=== PATIENT | female | born 1985 | race African-American/Black ===

== ENCOUNTER 2023-09-07 20:36 | Emergency (ER) | payer MEDICAID, SELFPAY ==
--- NOTE | ~2023-09-07 | XR_ITS ---
EXAMINATION: XR chest 2V DATE: 09/07/2023 21:41 INDICATION: Chest pain. TECHNIQUE: Frontal and lateral views of the chest were obtained. COMPARISON: None. FINDINGS: There is no pneumonia, pleural effusion, or pneumothorax. The heart size is normal. IMPRESSION: 1. No acute cardiopulmonary disease. Reviewed, dictated and finalized at location E. 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
--- NOTE | 2023-09-07 20:37 | ECG_ITS ---
Measurements Intervals [place] Rate: 89 P: 53 ME: 154 QRS: 19 QRSD: 96 T: 30 QT: 364 QTc: 445 Interpretive Statements SINUS RHYTHM WITH SINUS ARRHYTHMIA NORMAL ELECTROCARDIOGRAM NO PREVIOUS ECG AVAILABLE FOR COMPARISON Electronically Signed On 09-08-2023 12:32:14 [employer]ESSOR OF [employer]ANG[employer]AGES by Angelito Montana M.D.
[2023-09-07 20:45] VITALS: BP 124/88; PULSE 89; RESP 20; TEMP 36.2; O2SAT 100
[2023-09-07 20:54] LABS: Basophils Absolute Auto 0.1 K/mm3 (0.0-0.1); Basophils Percent Auto 0.8 % (0.2-1.2); Eosinophils Absolute Auto 0.1 K/mm3 (0-0.3); Eosinophils Percent Auto 1.9 % (0-4.4); Hematocrit 35.7 % (37.0-47.0); Hemoglobin 11.9 g/dL (12.0-15.0); Immature Granulocyte Absolute 0.01 K/mm3 (0.00-0.031); Immature Granulocyte Percent A 0.2 % (0-0.5); Lymphocytes Absolute Auto 3.08 K/mm3 (0.9-3.2); Mean Corpuscular HGB Conc 33.3 g/dl (32-36); Mean Corpuscular Hemoglobin 29.9 pg (26-34); Mean Corpuscular Volume 89.7 fl (80-100); Mean Platelet Volume 9.6 fl (7.4-10.4); Monocytes Absolute Auto 0.4 K/mm3 (0.1-0.6); Monocytes Percent Auto 6.7 % (2.6-8.5); Neutrophils Absolute Auto 2.7 K/mm3 (1.3-6.7); Neutrophils Percent Auto 42.4 % (45.5-73.1); Platelet Count Result 331 k/mm3 (150-375); Red Blood Count 3.98 M/mm3 (4.2-5.4); Red Cell Distribution Width 12.2 % (11.5-14.5); White Blood Count 6.4 K/mm3 (4.5-10.0)
[2023-09-07 21:05] LABS: Prothrombin Time 13.4 Seconds (11.1-14.7)
[2023-09-07 21:06] LABS: Partial Thromboplastin Time 28.3 SECONDS (22.3-36.8)
[2023-09-07 21:14] LABS: Alanine Aminotransferase 17 U/L (6-35); Albumin Level 4.6 g/dL (3.5-5.1); Alkaline Phosphatase 54 U/L (38-126); Anion Gap 7 mmol/L (8-16); Aspartate Amino Transferase 24 U/L (14-36); Bilirubin,Total 0.6 mg/dL (0.2-1.3); Blood Urea Nitrogen 15 mg/dL (7-17); Calcium 9.5 mg/dL (8.4-10.2); Carbon Dioxide 29 mmol/L (22-30); Chloride 104 mmol/L (98-107); Estimated CRCL calculation 88 ml/min; Estimated Glomerular Filt Rate > 60; Glucose 100 mg/dL (65-110); Lipase 132 U/L (23-300); Potassium 3.5 mmol/L (3.4-5.0); Sodium 140 mmol/L (137-145)
[2023-09-07 21:24] LABS: Troponin I < 0.012 ng/mL (0.000-0.034)
[2023-09-07 23:19] VITALS: O2SAT 98
--- NOTE | 2023-09-07 23:47 | ED.CHESTPAIN ---
HPI - Chest Pain General Chief Complaint: Chest Pain Stated Complaint: chest pain Time Seen by Provider: 09/07/23 23:40 Source: patient Mode of arrival: ambulatory Limitations: no limitations History of Present Illness HPI narrative: patient presents with an episode of chest pain associated with some dizziness. She also knows that she experiences some mild bilateral tingling in her face. She notes that this has been occurring intermittently for few months with episodes lasting for a few minutes but today felt slightly worse. When episodes occur she feels short of breath but not at rest. No nausea or vomiting. No palliating or provoking factors. She describes it as a pressure but not sharp. No fevers. She has had a dry cough for few days but no hemoptysis. No recent surgeries or immobilizations/being bed-bound. She has never seen a mining engineering technologist. She does not currently have a primary care physician. She does not smoke. No history of DVT or PE. No underlying cardiac or respiratory history. Amenorrhea could Mirena IUD. No recent travel. No lower extremity edema. No family members with myocardial infarction. Related Data Allergies Allergy/AdvReac Type Severity Reaction Status Date / Time No Known Allergies Allergy Verified 09/07/23 20:49 [facility] Family History Family History (Updated 09/10/23 @ 11:31 by Daphne Gill MD) Father Hypertension Mother Hypertension Social History Social History (Updated 09/10/23 @ 11:31 by Daphne Gill MD) Smoking status: Never smoker Exam Narrative: GENERAL: Well-appearing, well-nourished, and in no acute distress. HEAD: Normocephalic, atraumatic. EYES: Non injected, non icteric ENT: Nares clear, no rhinorrhea or epistaxis. NECK: Supple. CHEST: Clear to auscultation. No respiratory distress. Speaking in full sentences. Nonlabored. No wheezes, stridor, crackles. HEART: Regular rate and rhythm. Normal S1 and S2. ABDOMEN: Soft, nondistended. EXTREMITIES: Normal range of motion. No edema. SKIN: Warm, dry, no rash. NEURO: No focal deficits. Alert and oriented x3. PSYCH: Normal mood and affect. Course Vital Signs Vital signs: Vital Signs Temperature 97.2 F L 09/07/23 20:45 Pulse Rate 89 09/07/23 20:45 Respiratory Rate 20 02/22/24 20:45 Blood Pressure 124/88 09/07/23 20:45 Pulse Oximetry 100 09/07/23 20:45 Oxygen Delivery Room Air 09/07/23 20:45 Temperature 97.2 F L 09/07/23 20:45 Pulse Rate 75 09/08/23 02:14 Respiratory Rate 16 09/08/23 02:14 Blood Pressure 101/80 09/08/23 02:14 Pulse Oximetry 100 09/08/23 02:14 Oxygen Delivery Room Air 09/07/23 23:19 MDM - Chest Pain MDM Narrative Medical decision making narrative: Patient presents with an episode of chest pain as as associated with dizziness and tingling face. She notes that she is experienced these episodes intermittently over the past few months. She was so short of breath when it happens but not currently. No underlying respiratory or cardiac history. In the emergency department she is afebrile with vital signs within normal limits. Notably, not tachycardic or hypoxic. Normal EKG. PERC Rule for Pulmonary Embolism - r/o PE if no criteria are present and pre-test probability is <15% Age >/= 50: 0 SaO2 on room air <95%: 0 Unilateral leg swellin Recent surgery or trauma (<4 weeks ago requiring general anesthesia): 0 Prior PE or DVT: 0 Hormone use (OCPs, HRT, estrogenic hormone use in M/F patients): 0 HR >100: 0 Total PERC Score: 0 HEART SCORE History 2 highly suspicious 1 moderately suspicious 0 slightly suspicion History score [address] depression 1 nonspecific repolarization changes 0 normal ECG score 0 Age 2 greater than 65 1 45-65 0 <45 Age score 0 Risk factors 2 greater than 3 risk factors 1 - 1-2 risk factors 0 no risk factors Risk factor score 0 Troponin 2 grea
[2023-09-08] MEDS: IBUPROFEN 600 MG TABLET PO (00:33)
[2023-09-08] MEDS: ACETAMINOPHEN 500 MG TABLET 1000 MG PO (00:34)
[2023-09-08 00:59] LABS: Troponin I < 0.012 ng/mL (0.000-0.034)
[2023-09-08 01:11] LABS: Influenza A QL RT-PCR Negative (Negative); Influenza B QL RT-PCR Negative (Negative); RSV RNA, RT-PCR Negative (Negative); SARS-CoV-2 RNA PCR Negative (Negative)
[2023-09-08 02:14] VITALS: BP 101/80; PULSE 75; RESP 16; O2SAT 100
== END 2023-09-08 02:32 | disposition home or self-care (01) ==
PROVIDERS: Emergency Provider Student in an Organized Health Care Education/Training Program
DX: R07.9 Chest pain, unspecified (principal); D64.9 Anemia, unspecified; Z20.822 Contact with and (suspected) exposure to COVID-19
CPT/HCPCS: 36415; 71046; 80053; 83690; 84484; 85025; 85610; 85730; 87637; 93005; 99284; A9270